=== PATIENT | male | born 1985 | race African-American/Black ===

== ENCOUNTER 2021-08-23 10:51 | Emergency (ER) | payer BC, SELFPAY ==
[2021-08-23 11:04] VITALS: BP 139/82; PULSE 71; RESP 16; TEMP 36.8; O2SAT 98
--- NOTE | 2021-08-23 11:04 | ED.CHESTPAIN ---
HPI - Chest Pain General Chief Complaint: Chest Pain Stated Complaint: Chest Pain Time Seen by Provider: 08/23/21 11:04 Source: patient and RN notes reviewed Mode of arrival: ambulatory Limitations: no limitations History of Present Illness HPI narrative: 36-year-old male presents to the [facility] with a couple of months of intermittent left-sided chest pain that radiates to his left armpit and left arm. Has had shortness of breath. States over the last 3 days it is gotten worse. Reports pain in the left chest radiating to the left axilla and into the lower back. Describes the lower back pain as severe pressure. States he could not leave his house because the pain was so bad over the weekend. denies nausea or vomiting. Denies any past medical history. Does not take any medications nor surgical history. 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: chest pain Related Data Home Medications Medication Instructions Recorded Confirmed No Home Medications 08/23/21 08/23/21 Allergies Allergy/AdvReac Type Severity Reaction Status Date / Time No Known Allergies Allergy Verified 08/23/21 12:43 Review of Systems Review of Systems: All systems reviewed & are unremarkable except as noted in HPI and below Constitutional: Constitutional: Reports no additional constitutional complaints, Denies chills and Denies fever(s) Eyes: Eyes: Reports no additional eye complaints ENT: Reports system reviewed and no additional complaints, except as documented Cardiovascular: Cardiovascular: Reports as per HPI, Reports chest pain, Denies rapid heart rate, Reports radiating jaw, neck or arm pain (Left axilla, left arm) and Denies slow heart rate Respiratory: Respiratory: Reports as per HPI and Reports dyspnea (Associated with chest pain) Gastrointestinal: Gastrointestinal: Reports as per HPI Comments: Reports feeling a lot of gas, bloating and pain into his back Musculoskeletal: Musculoskeletal: Reports no additional musculoskeletal complaints Integumentary/Breasts: Skin/Breast: Reports system reviewed and no additional complaints, except as docu Neurologic: Reports system reviewed and no additional complaints, except as documented Psychiatric: Psychiatric: Reports no additional psychiatric complaints Allergic/Immunologic: Allergic/Immunologic: Reports no additional allergic/immunologic complaints PMFSH Past Medical History Medical History (Updated 08/23/21 @ 11:50 by Dorita Strickland, HVAC TECHNICIAN) Patient denies medical problems Surgical History Surgical History (Updated 08/23/21 @ 11:16 by Dorita Strickland APRN) No pertinent past surgical history Social History Social History (Updated 08/23/21 @ 11:45 by Dorita Strickland APRN) Smoking status: Former smoker Tobacco type: cigarettes Occupation/Education: occupation 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 There is no relevant family history pertinent to the patient complaint. Exam Const: General: healthy appearing, no acute distress and alert Nutritional Appearance: well nourished Orientation/consciousness: patient oriented x3 Limitations: no limitations HENMT: Head: normal to inspection Ears: external ears normal Eyes: Pupils: Equal, round and reactive pupils present Neck: Neck: normal visual inspection, no lymphadenopathy and no meningeal signs Chest: Chest palpation & inspection: normal inspection of the chest and no tenderness Resp: Effort & Inspection: normal respiratory effort and no use of accessory muscles Auscultation: clear to auscultation bilaterally, no crackles, no rales, no rhonchi and no wheezes Cardio: Rate: regular rate Rhythm: regular rhythm GI: GI Palp: Yes Soft to palpation and No Tenderness to palpation present (GI) Skin: General
--- NOTE | 2021-08-23 11:12 | ECG_ITS ---
Measurements Intervals [place] Rate: 68 P: 45 MT: 210 QRS: 24 QRSD: 90 T: -6 QT: 359 QTc: 383 Interpretive Statements SINUS RHYTHM WITH FIRST DEGREE AV BLOCK OTHERWISE WITH NORMAL LIMITS NO PREVIOUS ECG AVAILABLE FOR COMPARISON Electronically Signed On 08-23-2021 15:44:32 CDT by Tobin Mac M.D.
== END 2021-08-23 11:20 | disposition short-term general hospital (02) ==
PROVIDERS: Emergency Provider Nurse Practitioner
DX: R07.9 Chest pain, unspecified (principal); Z87.891 Personal history of nicotine dependence; I44.0 Atrioventricular block, first degree
CPT/HCPCS: 93005; 99213; G0463

== ENCOUNTER 2021-08-23 11:33 | Emergency (ER) | payer BC, SELFPAY ==
[2021-08-23] VITALS (16 sets, daily range): BP systolic 136–180; BP diastolic 74–147; PULSE 62–75; RESP 12–21; TEMP 36.4; O2SAT 98–100
--- NOTE | ~2021-08-23 | XR_ITS ---
EXAMINATION: XR chest 2V DATE: 08/23/2021 11:56 INDICATION: Intermittent chest pain TECHNIQUE: PA and lateral views of the chest are obtained. COMPARISON: None available FINDINGS: The lungs are free of acute opacities. There is no pleural effusion or pneumothorax. The ca rdiomediastinal silhouette is normal. The visualized bones and soft tissues are unremarkable. IMPRESSION: 1. No acute cardiopulmonary abnormality. Reviewed, dictated and finalized at location B.
--- NOTE | 2021-08-23 11:42 | ECG_ITS ---
Measurements Intervals [place] Rate: 73 P: 44 SD: 205 QRS: 25 QRSD: 88 T: -9 QT: 367 QTc: 407 Interpretive Statements SINUS RHYTHM BORDERLINE FIRST-DEGREE AV BLOCK COMPARED TO ECG 08/23/2021 11:10:50 NO SIGNIFICANT CHANGES Electronically Signed On 08-23-2021 15:46:52 CDT by Tobin Mac M.D.
[2021-08-23 13:01] LABS: Basophils Percent Auto 0.7 % (0.2-1.2); Eosinophils Absolute Auto 0.3 K/mm3 (0-0.3); Eosinophils Percent Auto 5.9 % (0-4.4); Hematocrit 43.8 % (42.0-52.0); Hemoglobin 14.1 g/dL (14.0-18.0); Immature Granulocyte Absolute 0.02 K/mm3 (0.00-0.031); Immature Granulocyte Percent A 0.5 % (0-0.5); Lymphocytes Absolute Auto 1.71 K/mm3 (0.9-3.2); Lymphocytes Percent Auto 40.2 % (18.3-44.2); Mean Corpuscular HGB Conc 32.2 g/dl (32-36); Mean Corpuscular Hemoglobin 30.7 pg (26-34); Mean Corpuscular Volume 95.2 fl (80-100); Mean Platelet Volume 9.3 fl (7.4-10.4); Monocytes Absolute Auto 0.5 K/mm3 (0.1-0.6); Monocytes Percent Auto 11.5 % (2.6-8.5); Neutrophils Absolute Auto 1.8 K/mm3 (1.3-6.7); Neutrophils Percent Auto 41.2 % (45.5-73.1); Platelet Count Result 244 k/mm3 (150-375); Red Cell Distribution Width 12.2 % (11.5-14.5); White Blood Count 4.3 K/mm3 (4.5-10.0)
[2021-08-23 13:11] LABS: Prothrombin Time 13.1 Seconds (11.1-14.7)
[2021-08-23 13:25] LABS: Chloride 103 mmol/L (98-107)
[2021-08-23 13:29] LABS: Alanine Aminotransferase 50 U/L (4-50); Albumin Level 4.4 g/dL (3.5-5.1); Alkaline Phosphatase 124 U/L (38-126); Anion Gap 4 mmol/L (8-16); Aspartate Amino Transferase 41 U/L (17-59); Bilirubin,Total 0.3 mg/dL (0.2-1.3); Blood Urea Nitrogen 13 mg/dL (9-20); Calcium 8.9 mg/dL (8.4-10.2); Carbon Dioxide 28 mmol/L (22-30); Estimated CRCL calculation 121 ml/min; Estimated Glomerular Filt Rate > 60; Glucose 96 mg/dL (65-110); Lipase 45 U/L (23-300); Potassium 5.3 mmol/L (3.4-5.0); Sodium 135 mmol/L (137-145)
[2021-08-23 13:36] LABS: D Dimer < 0.27 ug/mL (<0.48)
[2021-08-23 13:38] LABS: Troponin I < 0.012 ng/mL (0.000-0.034)
--- NOTE | 2021-08-23 14:41 | PC.NURSE ---
Dr. Colmenares at bedside to discuss results with pt.
--- NOTE | 2021-08-23 14:47 | ED.CHESTPAIN ---
HPI - Chest Pain General Chief Complaint: Chest Pain Stated Complaint: Chest Pain Time Seen by Provider: 08/23/21 13:01 Source: patient History of Present Illness HPI narrative: Patient presents with left chest pain intermittent for the past several weeks. And it was any clear aggravating or alleviating factors it is sharp, sometimes radiates to his left arm. He is currently without pain sometimes he feels short of breath with denies cough lightheadedness nausea vomiting diaphoresis denies any significant family history denies any recent hospitalizations or surgeries. Denies prior history of blood clots. Related Data Home Medications Medication Instructions Recorded Confirmed No Home Medications 08/23/21 08/23/21 Allergies Allergy/AdvReac Type Severity Reaction Status Date / Time No Known Allergies Allergy Verified 08/23/21 12:43 Review of Systems Review of Systems: CONSTITUTIONAL: Denies fever, chills, or sweats. EYES: Denies visual changes, redness, or discharge. ENT: Denies rhinorrhea, congestion, sore throat, or otalgia. CARDIOVASCULAR: Denies palpitations, or edema. RESPIRATORY: Denies cough GASTROINTESTINAL: Denies abdominal pain, nausea, vomiting, or diarrhea. GENITOURINARY: Denies dysuria or hematuria. SKIN: Denies rash or itching. MUSCULOSKELETAL: Denies back pain, joint pain, or myalgia. NEUROLOGIC: Denies headache, numbness, dizziness, or weakness. PSYCHIATRIC: Denies anxiety or depression. 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 HEAD: Normocephalic, atraumatic. EYES: PERRLA and EOMI. ENT: Nares clear, no rhinorrhea or epistaxis. Mucous membranes moist. NECK: Supple. No masses. No JVD CHEST: Clear to auscultation. No respiratory distress. No wheezes rales or rhonchi HEART: Regular rate and rhythm. No murmur heard. Normal peripheral pulses. ABDOMEN: Soft, nontender, nondistended, normal active bowel sounds. EXTREMITIES: Normal range of motion. No edema. SKIN: Warm, dry, no rash. NEURO: No focal deficits. Alert and oriented x3. PSYCH: Normal mood and affect. Course Reevaluation(s) Reevaluation #1: Patient is resting comfortably results and plan reviewed with patient. Patient is comfortable outpatient plan. Date: 08/23/21 Time: 14:49 Vital Signs Vital signs: Vital Signs Temperature 36.4 C 08/23/21 11:47 Pulse Rate 71 08/23/21 11:47 Respiratory Rate 18 08/23/21 11:47 Blood Pressure 136/82 08/23/21 11:47 Pulse Oximetry 100 08/23/21 11:47 Temperature 36.4 C 08/23/21 11:47 Pulse Rate 68 08/23/21 14:45 Respiratory Rate 20 08/23/21 14:45 Blood Pressure 139/127 H 08/23/21 14:17 Pulse Oximetry 99 08/23/21 14:45 MDM - Chest Pain MDM Narrative Medical decision making narrative: H&P as above, vss, pt looks clinically well, exam reassuring, labs clinically unremarkable, img without acute process, additional labs/img considered, symptomatic relief available as needed, on reevaluation pt continues to looks clinically well. Symptoms remain of unclear etiology, dns PE, dissection, ACS, severe sepsis, pneumothorax. plan to tx/monitor as op w/ pcm f/u findings/plan discussed with pt, pt agree/comfortable with plan, return precautions given Lab Data Result diagrams: 08/23/21 12:53 08/23/21 12
== END 2021-08-23 15:03 | disposition home or self-care (01) ==
PROVIDERS: Emergency Provider Emergency Medicine
DX: R07.9 Chest pain, unspecified (principal); Z87.891 Personal history of nicotine dependence; I44.0 Atrioventricular block, first degree
CPT/HCPCS: 36415; 71046; 80053; 83690; 84484; 85025; 85380; 85610; 85730; 93005; 99284

== ENCOUNTER 2023-04-25 10:51 | Emergency (ER) | payer BC, SELFPAY ==
--- NOTE | ~2023-04-25 | CT_ITS ---
EXAMINATION: CT abdomen pelvis w con DATE: 04/25/2023 12:32 INDICATION: Upper abdominal pain. Back pain. TECHNIQUE: Computed tomography (CT) of the abdomen and pelvis was performed with 100 mL Omnipaque 350 intravenous contrast. Automated exposure control and iterative reconstruction technique were employe d. The dose-length product was 1355.30 mGy-cm. COMPARISON: None. FINDINGS: The visualized portions of the lung bases are clear without pneumonia or pleural effusion. The heart size is normal. No pericardial effusion. The liver, gallbladder, spleen, pancreas, adrenal glands, and kidneys are normal. There are no dilated loops of bowel. The appendix is normal. There is an umbilical hernia containing fat. There are no pathologically enlarged lymph nodes. There is no fr ee intraperitoneal fluid. There is a benign bone island in right femoral head. There is mild thoracic and lumbar spondylosis. IMPRESSION: 1. Umbilical hernia containing fat. Reviewed, dictated and finalized at location E. L[facility]
[2023-04-25 10:52] VITALS: BP 145/84; PULSE 86; RESP 16; TEMP 37.1; O2SAT 96
[2023-04-25 11:19] LABS: Basophils Percent Auto 0.5 % (0.2-1.2); Eosinophils Absolute Auto 0.2 K/mm3 (0-0.3); Eosinophils Percent Auto 4.8 % (0-4.4); Hematocrit 46.7 % (42.0-52.0); Hemoglobin 14.4 g/dL (14.0-18.0); Immature Granulocyte Absolute 0.01 K/mm3 (0.00-0.031); Immature Granulocyte Percent A 0.3 % (0-0.5); Mean Corpuscular HGB Conc 30.8 g/dl (32-36); Mean Corpuscular Hemoglobin 29.3 pg (26-34); Mean Corpuscular Volume 94.9 fl (80-100); Mean Platelet Volume 9.3 fl (7.4-10.4); Monocytes Absolute Auto 0.5 K/mm3 (0.1-0.6); Monocytes Percent Auto 11.5 % (2.6-8.5); Neutrophils Absolute Auto 1.7 K/mm3 (1.3-6.7); Neutrophils Percent Auto 42.9 % (45.5-73.1); Platelet Count Result 250 k/mm3 (150-375); Red Blood Count 4.92 M/mm3 (4.6-6.20); Red Cell Distribution Width 11.9 % (11.5-14.5)
[2023-04-25 11:27] LABS: Appearance Urine Clear (Clear); Bacteria Urine None Seen /hpf; Bilirubin Urine 1+ (Negative); Blood Urine Negative (Negative); Color Urine Dark Yellow (Yellow); Glucose Urine UA Negative (Negative); Ketones Urine Trace mg/dL (Negative); Leukocyte Esterase Ur Trace LEU/UL (Negative); Nitrate Urine Negative (Negative); Protein Urine Trace mg/dL (Negative); RBC Urine 0-2 /hpf (0-2); Squamous Epithelial Cell Urine None seen /hpf (Few); WBC Urine 21-50 /hpf; pH Urine 5.5 (5.0-9.0)
[2023-04-25 11:36] LABS: Alanine Aminotransferase 42 U/L (6-50); Albumin Level 4.6 g/dL (3.5-5.1); Alkaline Phosphatase 117 U/L (38-126); Anion Gap 10 mmol/L (8-16); Aspartate Amino Transferase 39 U/L (17-59); Bilirubin,Total 0.5 mg/dL (0.2-1.3); Blood Urea Nitrogen 18 mg/dL (9-20); Calcium 8.9 mg/dL (8.4-10.2); Carbon Dioxide 25 mmol/L (22-30); Chloride 104 mmol/L (98-107); Estimated CRCL calculation 118 ml/min; Estimated Glomerular Filt Rate > 60; Glucose 85 mg/dL (65-110); Lipase 84 U/L (23-300); Potassium 4.4 mmol/L (3.4-5.0); Sodium 139 mmol/L (137-145); Specific Grav Ur 1.043 (1.001-1.035)
[2023-04-25 11:37] LABS: Add Urine Microscopic? YES
[2023-04-25] MEDS: SODIUM CHLORIDE 0.9% IV 1,000 ML 999 ML IV CONT (12:04)
[2023-04-25] MEDS: BELLADONNA ALK/PHENOB ELIX 10 ML, MAG HYDROX/ALUMINUM HYD/SIMETH 30 ML, LIDOCAINE HCL 2... PO (12:13)
--- NOTE | 2023-04-25 12:19 | ED.ABDPAIN ---
HPI - Abdominal Pain General Chief Complaint: Abdominal Pain Stated Complaint: ABD PAIN,DIARRHEA,PAINFUL URINATION Time Seen by Provider: 04/25/23 11:35 Source: patient Mode of arrival: ambulatory Limitations: no limitations History of Present Illness HPI narrative: Patient is a 37-year-old male who presents the ED with multiple complaints. He reports having indigestion and upper abdominal pain after eating over the last couple of days. He also reports having a burning sensation in his bilateral lower back after eating. He reported 1 episode of vomiting on Monday and a couple episodes of diarrhea. He also complains of painful urination that began today. Denies hematuria, fevers, rectal bleeding. Denies current nausea. Denies concern for STDs. Denies genital lesions, penile drainage, testicular pain or swelling. Related Data Allergies Allergy/AdvReac Type Severity Reaction Status Date / Time No Known Allergies Allergy Verified 04/25/23 11:36 Review of Systems Review of Systems: CONSTITUTIONAL: Denies fever, chills, or sweats. CARDIOVASCULAR: Denies chest pain. RESPIRATORY: Denies dyspnea. GASTROINTESTINAL: See HPI. GENITOURINARY: See HPI. MUSCULOSKELETAL: See HPI. NEUROLOGIC: Denies headache, numbness, or weakness. 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 HEAD: Normocephalic, atraumatic. NECK: Supple. No adenopathy, no masses. RESPIRATORY: Airway patent, respirations nonlabored. Clear to auscultation bilaterally, no rales, rhonchi, wheezing. CARDIOVASCULAR: Regular rate and rhythm without murmurs, rubs, or gallops. Radial pulses 2+ and equal bilaterally. ABDOMINAL: Soft, no significant tenderness throughout abdomen, nondistended, no hepatosplenomegaly. Normoactive BS. MUSCULOSKELETAL: Moves all extremities. Strength/ROM intact without gross deformities. No lower back tenderness. SKIN: Warm, dry, normal color. No rashes. NEURO: A&O X3. Speech clear. Cranial nerves II-XII grossly intact. Steady gait. No ataxic movements. PSYCHIATRIC: Appropriate mood and affect. Normal interaction. Course Vital Signs Vital signs: Vital Signs Temperature 98.7 F 04/25/23 10:52 Pulse Rate 86 04/25/23 10:52 Respiratory Rate 16 04/25/23 10:52 Blood Pressure 145/84 H 04/25/23 10:52 Pulse Oximetry 96 04/25/23 10:52 Oxygen Delivery Room Air 04/25/23 10:52 Temperature 98.7 F 04/25/23 10:52 Pulse Rate 86 04/25/23 10:52 Respiratory Rate 16 04/25/23 10:52 Blood Pressure 145/84 H 04/25/23 10:52 Pulse Oximetry 96 04/25/23 10:52 Oxygen Delivery Room Air 04/25/23 10:52 MDM - Abdominal Pain MDM Narrative Medical decision making narrative: Patient presented to ED with multiple vague complaints, indigestion, lower back burning, painful urination, diarrhea. Vitals stable upon arrival. Patient afebrile. In no acute distress. Basic laboratory studies obtained and unremarkable. No significant abnormalities. Urine does appear infectious. Will treat. Gonorrhea & chlamydia testing were negative. Patient given fluids and GI cocktail in the ED. He did report improvement of abdominal pain and burning w/ GI cocktail. CT abd pelvis showing small fat containing umbilical hernia. No other significant
[2023-04-25 13:44] LABS: Chlamydia trachomatis NOT DETECTED (NOT DETECTE); Neisseria gonorrhoeae PCR NOT DETECTED (NOT DETECTE)
== END 2023-04-25 14:29 | disposition home or self-care (01) ==
PROVIDERS: Emergency Medicine; Emergency Provider Physician Assistant
DX: N30.00 Acute cystitis without hematuria (principal); K42.9 Umbilical hernia without obstruction or gangrene; K21.9 Gastro-esophageal reflux disease without esophagitis
CPT/HCPCS: 36415; 74177; 80053; 81001; 83690; 85025; 87086; 87491; 87591; 96360; 99284; A9270; J7030; Q9967